=== PATIENT | male | born 1950 | race Caucasian/White ===

== ENCOUNTER 2020-11-05 13:11 | Outpatient (CLI) | payer MEDICARE, MEDICAID, SELFPAY ==
[2020-11-05 13:38] LABS: Basophils # 0.1 10^3/uL (0.0-0.1); Basophils % 0.5 %; Eosinophils # 0.4 10^3/uL (0.0-0.8); Eosinophils % 3.7 %; Hematocrit 41.6 % (42.0-52.0); Hemoglobin 13.3 g/dL (11.7-16.6); Lymphocytes # 1.7 10^3/uL (0.8-4.8); Lymphocytes % 17.4 %; Mean Corpuscular Hemoglobin 29.8 pg (28.0-34.0); Mean Corpuscular Volume 93.3 fL (80-94); Mean Platelet Volume 9.4 fL (7.4-10.4); Monocytes # 0.5 10^3/uL (0.2-0.9); Monocytes % 5.4 %; Neutrophils # 7.02 10^3/uL (1.8-7.7); Neutrophils % 72.7 %; Nucleated Red Blood Cells % 0 %; Platelet Count 415 10^3/cmm (130-400); Red Blood Count 4.46 10^6/uL (4.1-5.3); Red Cell Distribution Width 12.6 % (12.1-15.1); White Blood Count 9.7 10^3/uL (4.0-10.0)
[2020-11-05 14:21] LABS: Folate Level 2.9 ng/mL (4.5-32.2)
[2020-11-05 14:22] LABS: 25 Hydroxy Vitamin D 15 ng/mL (30-100); Alanine Aminotransferase 14 U/L (0-41); Albumin Level 3.5 g/dL (3.5-5.2); Alkaline Phosphatase 73 IU/L (40-130); Anion Gap 13.2 (5-19); Aspartate Amino Transferase 17 U/L (0-40); Blood Urea Nitrogen 11 mg/dL (8-23); Calcium 9.2 mg/dL (8.5-10.5); Carbon Dioxide 29 mmol/L (22-29); Chloride 101 mmol/L (98-107); Globulin 3.3 g/dL (1.3-4.6); Glucose 92 mg/dL (65-115); Osmolality Calculated 287 mOsm/kg (285-295); Potassium 4.2 mmol/L (3.5-5.1); Sodium 139 mmol/L (136-145); Thyroid Stimulating Hormone 1.13 uIU/mL (0.27-4.20); Total Bilirubin 0.3 mg/dL (0.15-1.2); Total Protein 6.8 g/dL (6.6-8.7); Vitamin B12 202 pg/mL (232-1245)
[2020-11-05 14:29] LABS: Estmated Average Glucose 85; Hemoglobin A1C 4.6 % (4.0-6.0)
== END 2020-11-05 13:12 | disposition home or self-care (01) ==
PROVIDERS: Visit Provider Internal Medicine
DX: I10 Essential (primary) hypertension (principal)
CPT/HCPCS: 80053; 82306; 82607; 82746; 83036; 84443; 85025

== ENCOUNTER 2021-05-23 21:25 | Outpatient (CLI) | payer MEDICARE, MEDICAID, SELFPAY ==
[2021-05-23 22:59] LABS: D Dimer 1.47 ug/mIFEU (0-0.59)
[2021-05-23 23:01] LABS: Basophils % 0.3 %; Eosinophils # 0.2 10^3/uL (0.0-0.8); Eosinophils % 1.9 %; Lymphocytes # 1.6 10^3/uL (0.8-4.8); Lymphocytes % 15.6 %; Mean Corpuscular HGB Conc 31.4 g/dL (30.0-36.0); Mean Corpuscular Hemoglobin 29.8 pg (28.0-34.0); Mean Corpuscular Volume 94.9 fl (80-94); Monocytes # 0.7 10^3/uL (0.2-0.9); Neutrophils # 7.56 10^3/uL (1.8-7.7); Nucleated Red Blood Cells % 0 %; Platelet Count 382 10^3/cmm (130-400); Red Blood Count 3.69 10^6/uL (4.1-5.3); Red Cell Distribution Width 13.5 % (12.1-15.1); White Blood Count 10.1 10^3/uL (4.0-10.0)
== END 2021-05-23 21:26 | disposition home or self-care (01) ==
PROVIDERS: Visit Provider Internal Medicine
DX: B35.9 Dermatophytosis, unspecified (principal); G30.0 Alzheimer's disease with early onset
CPT/HCPCS: 85025; 85378